=== PATIENT | female | born 1995 | race Caucasian/White ===

== ENCOUNTER 2021-05-02 08:22 | Outpatient (CLI) | payer MEDICAID, SELFPAY ==
[2021-05-02 08:22] VITALS: BMI 34.0
[2021-05-02 08:38] VITALS: BP 120/76; PULSE 108
[2021-05-02 09:01] VITALS: BP 132/78; PULSE 96
== END 2021-05-02 09:24 | disposition home or self-care (01) ==
LOC: OPOB 08:29 → OBGYN 08:30
PROVIDERS: Visit Provider Family Medicine
DX: O24.419 Gestational diabetes mellitus in pregnancy, unspecified control (principal); Z3A.00 Weeks of gestation of pregnancy not specified
CPT/HCPCS: 59025

== ENCOUNTER 2021-05-05 16:18 | Outpatient (CLI) | payer MEDICAID, SELFPAY ==
[2021-05-05 16:18] VITALS: BMI 34.2
[2021-05-05 16:25] VITALS: TEMP 36.1
[2021-05-05 16:26] VITALS: BP 128/75; PULSE 90
== END 2021-05-05 16:54 | disposition home or self-care (01) ==
LOC: OPOB 16:22 → OBGYN 16:22
PROVIDERS: Visit Provider Family Medicine
DX: O24.419 Gestational diabetes mellitus in pregnancy, unspecified control (principal); Z3A.00 Weeks of gestation of pregnancy not specified
CPT/HCPCS: 59025

== ENCOUNTER 2021-05-09 11:03 | Outpatient (CLI) | payer MEDICAID, SELFPAY ==
[2021-05-09 11:09] VITALS: BP 115/75; PULSE 83; RESP 17; TEMP 36.1
[2021-05-09 11:10] VITALS: BMI 33.6
[2021-05-09 11:29] VITALS: BP 116/75; PULSE 79
[2021-05-09 11:30] VITALS: BP 116/75; PULSE 79
== END 2021-05-09 11:30 | disposition home or self-care (01) ==
LOC: OPOB 11:04 → OBGYN 11:05
PROVIDERS: Visit Provider Family Medicine
DX: O24.419 Gestational diabetes mellitus in pregnancy, unspecified control (principal); Z3A.00 Weeks of gestation of pregnancy not specified
CPT/HCPCS: 59025; 99211

== ENCOUNTER 2021-05-12 08:25 | Outpatient (CLI) | payer MEDICAID, SELFPAY ==
[2021-05-12 08:37] VITALS: BP 130/84; PULSE 98
[2021-05-12 08:40] VITALS: BMI 33.8
[2021-05-12 08:57] VITALS: BP 124/79; PULSE 90
[2021-05-12 09:44] VITALS: BP 124/79; PULSE 90; RESP 18
== END 2021-05-12 09:10 | disposition home or self-care (01) ==
LOC: OPOB 08:29 → OBGYN 08:32
PROVIDERS: Visit Provider Family Medicine
DX: O24.419 Gestational diabetes mellitus in pregnancy, unspecified control (principal); Z3A.00 Weeks of gestation of pregnancy not specified
CPT/HCPCS: 59025; 99211

== ENCOUNTER 2021-05-16 10:25 | Outpatient (CLI) | payer MEDICAID, SELFPAY ==
[2021-05-16 10:33] VITALS: BP 125/78; PULSE 88
[2021-05-16 10:50] VITALS: BMI 34.3
[2021-05-16 11:02] VITALS: BP 125/78; PULSE 88; RESP 18; TEMP 36.9
== END 2021-05-16 11:03 | disposition home or self-care (01) ==
LOC: OPOB 10:26 → OBGYN 10:27
PROVIDERS: Visit Provider Family Medicine
DX: O24.419 Gestational diabetes mellitus in pregnancy, unspecified control (principal); Z3A.00 Weeks of gestation of pregnancy not specified
CPT/HCPCS: 59025; 99211

== ENCOUNTER 2021-05-19 16:34 | Outpatient (CLI) | payer MEDICAID, SELFPAY ==
[2021-05-19 16:40] VITALS: BP 115/69; PULSE 110
[2021-05-19 16:42] VITALS: RESP 17; TEMP 36.6; BMI 33.6
[2021-05-19 17:01] VITALS: BP 127/78; PULSE 81
[2021-05-19 17:07] VITALS: BP 127/78; PULSE 81
== END 2021-05-19 17:07 | disposition home or self-care (01) ==
LOC: OPOB 16:37 → OBGYN 16:37
PROVIDERS: Absent Provider Family Medicine; Visit Provider Family Medicine
DX: O24.419 Gestational diabetes mellitus in pregnancy, unspecified control (principal); Z3A.00 Weeks of gestation of pregnancy not specified
CPT/HCPCS: 59025; 99211

== ENCOUNTER 2021-05-22 10:05 | Outpatient (CLI) | payer MEDICAID, SELFPAY ==
[2021-05-22 10:25] VITALS: BP 132/84; PULSE 86
[2021-05-22 10:40] VITALS: BP 120/72; PULSE 89
[2021-05-22 10:58] VITALS: BMI 33.6
== END 2021-05-22 10:50 | disposition home or self-care (01) ==
LOC: OPOB 10:12 → OBGYN 10:18
PROVIDERS: Visit Provider Family Medicine
DX: O24.419 Gestational diabetes mellitus in pregnancy, unspecified control (principal); Z3A.00 Weeks of gestation of pregnancy not specified
CPT/HCPCS: 59025; 99211

== ENCOUNTER 2021-05-25 11:45 | Outpatient (CLI) | payer MEDICAID, SELFPAY ==
[2021-05-25 11:46] VITALS: BMI 34.5
[2021-05-25 11:59] VITALS: BP 134/80; PULSE 107
[2021-05-25 12:15] VITALS: BP 124/73; PULSE 88
== END 2021-05-25 12:23 | disposition home or self-care (01) ==
LOC: OPOB 11:50 → OBGYN 11:55
PROVIDERS: Visit Provider Family Medicine
DX: O24.419 Gestational diabetes mellitus in pregnancy, unspecified control (principal); Z3A.00 Weeks of gestation of pregnancy not specified
CPT/HCPCS: 59025

== ENCOUNTER 2021-05-29 10:26 | Outpatient (CLI) | payer MEDICAID, SELFPAY ==
[2021-05-29 10:26] VITALS: BMI 34.2
[2021-05-29 10:30] VITALS: RESP 18; TEMP 36.7
[2021-05-29 10:39] VITALS: RESP 17
[2021-05-29 10:45] VITALS: BP 119/77; PULSE 90
[2021-05-29 10:54] VITALS: BP 115/72; PULSE 92
== END 2021-05-29 11:15 | disposition home or self-care (01) ==
LOC: OPOB 10:34 → OBGYN 10:37
PROVIDERS: Visit Provider Family Medicine
DX: O24.419 Gestational diabetes mellitus in pregnancy, unspecified control (principal); Z3A.00 Weeks of gestation of pregnancy not specified
CPT/HCPCS: 59025

== ENCOUNTER 2021-05-30 10:46 | Inpatient (IN) | payer MEDICAID, SELFPAY ==
[2021-05-30] VITALS (61 sets, daily range): BP systolic 109–172; BP diastolic 62–91; PULSE 65–106; RESP 17; TEMP 36.1–36.3; O2SAT 96–100; BMI 33.8
[2021-05-30 10:58] LABS: Basophils # 0.1 10^3/uL (0.0-0.1); Basophils % 0.5 %; Eosinophils # 0.1 10^3/uL (0.0-0.8); Eosinophils % 0.8 %; Hematocrit 39.1 % (37.0-47.0); Hemoglobin 13.2 g/dL (11.5-15.3); Lymphocytes # 2.1 10^3/uL (0.8-4.8); Lymphocytes % 19.2 %; Mean Corpuscular HGB Conc 33.8 g/dL (30.0-36.0); Mean Corpuscular Hemoglobin 29.7 pg (28.0-34.0); Mean Corpuscular Volume 88.1 fl (81-99); Mean Platelet Volume 11.4 fL (7.4-10.4); Monocytes # 0.7 10^3/uL (0.2-0.9); Monocytes % 6.7 %; Neutrophils # 7.94 10^3/uL (1.8-7.7); Neutrophils % 72.4 %; Nucleated Red Blood Cells % 0 %; Platelet Count 223 10^3/cmm (130-400); Red Blood Count 4.44 10^6/uL (4.1-5.3); Red Cell Distribution Width 12.4 % (12.1-15.1)
[2021-05-30] MEDS: dextrose 5%-lactated ringers 1,000 ML 125 ML IV (13:32)
[2021-05-30] MEDS: oxytocin 30 UNIT/500 ML BAG IV (13:32)
[2021-05-30] MEDS: lactated ringers 1,000 ML 999 ML IV (14:41)
--- NOTE | 2021-05-30 16:52 | ANES.PREANE2 ---
Pre-Anesthetic Assessment Height/Weight: Height 1.6 m Weight 86.636 kg Temp Pulse Resp BP Pulse Ox 97.3 F L 102 H 17 135/91 100 05/30/21 14:04 05/30/21 16:50 05/30/21 10:47 05/30/21 16:50 05/30/21 15:43 Familial anesthetic complications: None Was Beta Yohannes taken within 24 hours: N/A Was Clonidine taken within 24 hours: N/A Social No alcohol and No tobacco Exam alert, oriented x 3, clear to auscultation bilaterally and regular rate & rhythm Airway Submandibular: within normal limits Cervical ROM: within normal limits Mallampati: Class II Dentition: full History/ROS No significant history except as noted Anesthetic Plan ASA status: 2 Anesthesia: Regional (specify below) (Labor Epidural) Medications/Allergies Home Medications Medication Instructions Recorded Confirmed Last Taken Type vits no.124-ferrous fum 1 tab PO DAILY 05/09/21 05/19/21 05/18/21 16:00 History 27 mg iron-folic acid 800 mcg tablet ( Vitamin) Allergies Allergy/AdvReac Type Severity Reaction Status Date / Time dexamethasone [From Decadron] Allergy ADR-Vomitin Verified 05/09/21 11:17 g Current Medications Generic Name Dose Route Start Last Admin Trade Name Freq PRN Reason Stop Dose Admin Dextrose/Lactated Ringer's 1,000 mls @ 125 mls/hr 05/30/21 11:00 05/30/21 13:32 Dextrose 5%-Lactated Ringers IV 125 mls/hr .Q8H LOUANN Administration Lactated Ringer's 1,000 mls @ 999 mls/hr 05/30/21 10:50 05/30/21 14:41 Lactated Ringers IV 999 mls/hr .Q1H1M PRN Administration See label comments Oxytocin 30 unit in 500 mls @ 1 mls/hr 05/30/21 13:15 05/30/21 13:32 Pitocin IV 2 milliunit/min .Q24H LOUANN 2 mls/hr Administration Protocol 1 MILLIUNIT/MIN PFSH Anesthesia Female Reproductive History : 1 Data Anesthesia : 05/30/21 09:48 Short CBC 05/30/21 Range/Units 09:48 WBC 11.0 H (4.0-10.0) 10^3/uL Hgb 13.2 (11.5-15.3) g/dL Hct 39.1 (37.0-47.0) % MCV 88.1 (81-99) fl Plt Count 223 (130-400) 10^3/cmm Neut % (Auto) 72.4 % Neut # (Auto) 7.94 H (1.8-7.7) 10^3/uL Cardiac Studies: No Data to Display
--- NOTE | 2021-05-30 17:57 | PM.OPHPUD ---
Labor & Delivery H&P Update Date of Procedure: May 30, 2021 Date H&P Performed: 05/22/21 Admission Diagnosis: SROM GDM diet controlled
--- NOTE | 2021-05-30 18:30 | P.PCNOB_ITS ---
Delivery Note: Date of delivery: May 30, 2021 Delivery: This is a 26-year-old at 39 weeks 1 day gestation who presented to labor and delivery with spontaneous rupture of membranes. Her fluid was clear and she was not feeling any contractions. Her labor was a ugmented using Pitocin and she received an epidural for pain management. She had a normal spontaneous vaginal delivery of a viable female weight 7 pounds half an ounce, 3120 g Apgars 9 and 10 over an intact perineum. The infant was suctioned at delivery and placed on mother's chest. The cord was clamped and cut. Cord blood was obtained. The placenta was delivered grossly intact and normal to inspection. There was a first-degree perineal laceration that was sutured using 3-0 chromic. There were also bilateral first-degree labial lacerations that were sutured using 3-0 chromic. Mother and infant were doing well after delivery. Estimated blood loss 200 mL A&P Assessment and plan (1) Spontaneous vaginal delivery: Routine care Status: Acute (2) Gestational diabetes mellitus, diet-controlled: Status: Acute Coding Level of Care Code Acute Electrical Unit [employer] for Chg Fwd Diagnoses Spontaneous vaginal delivery O80 Gestational diabetes mellitus, diet-controlled O24.410
[2021-05-30] MEDS: ibuprofen 800 mg tablet PO (20:46)
[2021-05-31] VITALS (8 sets, daily range): BP systolic 121–142; BP diastolic 72–86; PULSE 68–90; RESP 17–18; TEMP 35.9–36.8; O2SAT 97–98
[2021-05-31 06:11] LABS: Hematocrit 35.9 % (37.0-47.0); Mean Corpuscular HGB Conc 33.4 g/dL (30.0-36.0); Mean Corpuscular Hemoglobin 29.6 pg (28.0-34.0); Mean Corpuscular Volume 88.4 fl (81-99); Mean Platelet Volume 10.6 fL (7.4-10.4); Platelet Count 199 10^3/cmm (130-400); Red Blood Count 4.06 10^6/uL (4.1-5.3); Red Cell Distribution Width 12.4 % (12.1-15.1); White Blood Count 18.8 10^3/uL (4.0-10.0)
[2021-05-31] MEDS: docusate sodium 100 mg Capsule PO ×2 (09:21→17:57)
[2021-05-31] MEDS: prenatal vitamin Capsule 1 CAP PO (09:21)
[2021-05-31] MEDS: ibuprofen 800 mg tablet PO ×3 (09:21→21:15)
--- NOTE | 2021-05-31 11:59 | P.PN_ITS ---
Subjective Subjective: Post-date entry for 05/31/21: Pt is feeling well, vaginal bleeding is like a period, no pain, some cramping. Vitals/I&O/Wt Last Vital Signs Temp 98.1 F 06/01/21 10:30 Pulse 90 06/01/21 10:30 Resp 16 06/01/21 10:30 BP 134/83 06/01/21 10:30 Pulse Ox 98 06/01/21 10:30 Physical Exam Narrative: Alert and Oriented, sitting on bedside couch. Adbomen soft and nontender, extremities with no calf tenderness, slight nonpitting edema. Urinary Catheter Management: [place] Latex: Cath Placed During This Visit: yes, but has since been removed by the nurse Reason for Continuing Indwelling Catheter: Required Immobilization for Trauma or Surgery or Anesthesia Urinary Catheter Date of Insertion: 05/30/21 Urinary Catheter Time of Insertion: 16:25 Date Urinary Catheter Removed: 05/30/21 Time Urinary Catheter Discontinued: 17:51 Data : 05/31/21 06:05 A&P Assessment and plan (1) Spontaneous vaginal delivery: routine care Status: Acute (2) Gestational diabetes mellitus, diet-controlled: Status: Acute Attestations Medical Necessity Statement*: routine postpatum care Coding Level of Care Code Acute [employer] for Chg Fwd Diagnoses Spontaneous vaginal delivery O80 Gestational diabetes mellitus, diet-controlled O24.410
[2021-06-01 04:54] VITALS: BP 161/99; PULSE 90
[2021-06-01 04:55] VITALS: BP 145/76; PULSE 78
--- NOTE | 2021-06-01 08:34 | ANE.PACU2 ---
Inpatient post-anesthesia follow up: Airway intact: Yes Vital signs: Temperature 96.6 F Pulse Rate 78 Respiratory Rate 17 Blood Pressure 145/76 Pulse Oximetry 98 Oxygen Delivery Me thod Room Air Oxygen Flow Rate Fraction of Inspir ed Oxygen Hydration adequate: Yes Nausea and vomiting: No Pain level: 2 Mental status: Baseline
[2021-06-01 08:45] VITALS: BP 124/76; PULSE 76; RESP 16; TEMP 36.7; O2SAT 98
--- NOTE | 2021-06-01 09:31 | P.DS_ITS ---
Discharge Providers Date of Admission: 05/30/21 10:46 Date of Discharge: June 01, 2021 Attending Provider at Admission: Carol Thompson MD Attending Provider at Discharge: Carol Thompson MD Diagnoses at Discharge Discharge Diagnosis (1) Spontaneous vaginal delivery: Status: Acute (2) Gestational diabetes mellitus, diet-controlled: Status: Acute Reason for Visit Reason for Visit: Poss ROM Hospital Course Hospital Course This is a 26-year-old G1 now P1 who had a normal spontaneous vaginal delivery of a viable female . Mother did well after delivery. She was ambulating, tolerating a regular diet, had no pain and her vaginal bleeding had decreased on the day of discharge. She had some mildly elevated blood pressures 145/76 but was feeling well. Physical Exam Narrative: Alert and oriented, sitting in bedside chair holding infant. Pupils equal round reactive to light, heart regular rate and rhythm, lungs clear to auscultation bilaterally, abdomen soft nontender, fundus firm, no extremity tenderness. Urinary Catheter Management: [place] Latex: Cath Placed During This Visit: yes, but has since been removed by the nurse Reason for Continuing Indwelling Catheter: Required Immobilization for Trauma or Surgery or Anesthesia Urinary Catheter Date of Insertion: 05/30/21 Urinary Catheter Time of Insertion: 16:25 Date Urinary Catheter Removed: 05/30/21 Time Urinary Catheter Discontinued: 17:51 Discharge Data Studies Completed and Pending Laboratory Results WBC 18.8 10^3/uL (4.0-10.0) H 05/31/21 06:05 RBC 4.06 10^6/uL (4.1-5.3) L 05/31/21 06:05 Hgb 12.0 g/dL (11.5-15.3) 05/31/21 06:05 Hct 35.9 % (37.0-47.0) L 05/31/21 06:05 MCV 88.4 fl (81-99) 05/31/21 06:05 MCH 29.6 pg (28.0-34.0) 05/31/21 06:05 MCHC 33.4 g/dL (30.0-36.0) 05/31/21 06:05 RDW 12.4 % (12.1-15.1) 05/31/21 06:05 Plt Count 199 10^3/cmm (130-400) 05/31/21 06:05 MPV 10.6 fL (7.4-10.4) H 05/31/21 06:05 Neut % (Auto) 72.4 % 05/30/21 09:48 Lymph % (Auto) 19.2 % 05/30/21 09:48 [place] % (Auto) 6.7 % 05/30/21 09:48 Eos % (Auto) 0.8 % 05/30/21 09:48 Baso % (Auto) 0.5 % 05/30/21 09:48 Neut # (Auto) 7.94 10^3/uL (1.8-7.7) H 05/30/21 09:48 Lymph # (Auto) 2.1 10^3/uL (0.8-4.8) 05/30/21 09:48 [place] # (Auto) 0.7 10^3/uL (0.2-0.9) 05/30/21 09:48 Eos # (Auto) 0.1 10^3/uL (0.0-0.8) 05/30/21 09:48 Baso # (Auto) 0.1 10^3/uL (0.0-0.1) 05/30/21 09:48 Nucleated RBC % (auto) 0 % 05/30/21 09:48 Nucleated RBCs # 0.0 /100WBC 05/30/21 09:48 Vitals Last Vital Signs Temp 96.6 F L 05/31/21 21:26 Pulse 78 06/01/21 04:55 Resp 17 05/31/21 16:15 BP 145/76 06/01/21 04:55 Pulse Ox 98 05/31/21 16:15 Discharge Plan Discharge Patient Disposition: Home Condition: Stable Prescriptions: Continued Vitamin 27 mg iron- 800 mcg Tablet 1 tab PO DAILY 0RF Discharge Orders: Discharge Order (Routine); Ordered 06/01/21 Ordered By: Carol Thompson Referrals: Carol Thompson MD [Physician] - 1-3 days (Friday, mom has appt at 10:45 already) Discharge Diet: Usual diet Discharge Activity: Limit activity as instructed Patient Instructions: Depression (DC), Bleeding (DC), Preeclampsia and Eclampsia After Delivery (GEN), OB Discharge Report, OB Food/Drug Interaction Guide, OB Care at Home, Opioid Safety, OB Home Care, OB Proud Parent Packet, OB Vaginal Deliveries, Abnormal Bleeding Discharge Attestations Time Spent in Discharge Care*: less than 30 min Quality Metrics Clinical Quality Measures [ No reported AMI, CVA or VTE this stay] Coding Level of Care Code Acute Chg FW DC note Diagnoses Spontaneous vaginal delivery O80 Gestational diabetes mellitus, diet-controlled O24.410
[2021-06-01] MEDS: prenatal vitamin Capsule 1 CAP PO (10:11)
[2021-06-01] MEDS: ibuprofen 800 mg tablet PO (10:11)
[2021-06-01] MEDS: docusate sodium 100 mg Capsule PO (10:11)
[2021-06-01 10:30] VITALS: BP 134/83; PULSE 90; RESP 16; TEMP 36.7; O2SAT 98
== END 2021-06-01 11:30 | disposition home or self-care (01) | DRG 807 ==
LOC: OPOB 10:47 → OBGYN 10:47
PROVIDERS: Admitting Provider Family Medicine; Visit Provider Family Medicine
DX: O24.420 Gestational diabetes mellitus in childbirth, diet controlled (principal); Z37.0 Single live birth; O70.0 First degree perineal laceration during delivery; Z3A.39 39 weeks gestation of pregnancy
CPT/HCPCS: 36415; 59409; 85025; 85027; 99211; J2795